=== PATIENT | male | born 1935 | race Caucasian/White ===

== ENCOUNTER 2024-03-13 20:19 | Inpatient (IN) | payer MEDICARE ==
[~2024-03-13] VITALS: Ht 188 cm; Wt 79.4 kg
[2024-03-13] MEDS ORDERED: ONDANSETRON HCL/PF 4 MG/2 ML VIAL ONE (21:05)
[2024-03-13 21:06] LABS: BASOPHILS % (AUTO) 0.5 % (0.0-2.0); EOSINOPHILS # (AUTO) 0.2 K/uL (0.0-0.7); EOSINOPHILS % (AUTO) 2.1 % (0.0-6.0); HEMATOCRIT 37 % (39-51); HEMOGLOBIN 12.9 g/dL (13.5-17.5); LYMPHOCYTES # (AUTO) 0.8 K/uL (0.8-4.8); LYMPHOCYTES % (AUTO) 7.9 % (20.0-44.0); MEAN CORPUSCULAR HEMOGLOBIN 34 PG (26.0-33.0); MEAN CORPUSCULAR HGB CONC 35 g/dl (31.0-36.0); MEAN CORPUSCULAR VOLUME 97 fL (80-96); MONOCYTES # (AUTO) 0.8 K/uL (0.1-1.30); MONOCYTES % (AUTO) 7.3 % (2.0-12.0); NEUTROPHILS # (AUTO) 8.8 K/uL (1.8-8.9); NEUTROPHILS % (AUTO) 82.2 % (43.0-81.0); PLATELET COUNT (AUTO) 252 K/uL (150-450); RED BLOOD CELL COUNT(AUTO) 3.83 MIL/uL (4.5-6.0); RED CELL DISTRIBUTION WIDTH 14.4 % (11.5-15.0); WHITE BLOOD COUNT (AUTO) 10.7 K/uL (4.3-11.0)
[2024-03-13] MEDS ORDERED: MORPHINE SULFATE INJ 4 MG/ML DISP.SYRIN ONE (21:06)
[2024-03-13] MEDS: ONDANSETRON HCL/PF 4 MG/2 ML VIAL IVP ONE (21:10)
[2024-03-13] MEDS: MORPHINE SULFATE INJ 2 MG/ML DISP.SYRIN IV ONE (21:10)
[2024-03-13 21:14] LABS: CALCIUM, SERUM 8.4 mg/dL (8.5-10.1); CREATININE 1.2 mg/dL (0.6-1.3)
[2024-03-13 21:21] LABS: POTASSIUM 2.7 mmol/L (3.5-5.1)
[2024-03-13 21:22] LABS: INR 1.05 (0.91-1.10); PARTIAL THROMBOPLASTIN TIME 26.9 SEC (24.3-34.3); PROTHROMBIN TIME 11.1 SECS (9.2-11.1)
[2024-03-13] MEDS ORDERED: POTASSIUM CHLORIDE 20 MEQ TAB.PRT.SR PO ONE (21:42)
[2024-03-13] MEDS: POTASSIUM CHLORIDE 20 MEQ TAB.PRT.SR PO ONE (21:45)
[2024-03-13] MEDS ORDERED: ACETAMINOPHEN ES 500 MG TABLET ONE (22:30)
[2024-03-13] MEDS ORDERED: MAG HYDROX/AL HYDROX/SIMETH 30 ML UDC PO PRN (22:30)
[2024-03-13] MEDS ORDERED: MORPHINE SULFATE INJ 4 MG/ML DISP.SYRIN IV PRN (22:30)
[2024-03-13] MEDS ORDERED: ONDANSETRON HCL/PF 4 MG/2 ML VIAL IVP PRN (22:30)
[2024-03-13] MEDS: ACETAMINOPHEN ES 500 MG TABLET PO ONE (22:34)
[2024-03-13] MEDS ORDERED: ALLO100T PO (22:36)
[2024-03-13] MEDS ORDERED: LOSA25TA27 PO (22:36)
[2024-03-13] MEDS ORDERED: AMLO2.5T4 PO (22:36)
[2024-03-13] MEDS ORDERED: METO25TA3 PO (22:36)
[2024-03-13] MEDS ORDERED: DULO20CA PO (22:36)
[2024-03-13] MEDS ORDERED: SOLI5TAB2 PO (22:36)
[2024-03-13] MEDS ORDERED: TRAM50TA2 PO (22:36)
[2024-03-13] MEDS ORDERED: GEMTESA PO (22:36)
[2024-03-13] MEDS ORDERED: PRIM50TA27 PO (22:36)
[2024-03-13 22:45] VITALS: BP 136/83; TEMP 98.1; O2SAT 97
[2024-03-14] VITALS: BP 136/83; TEMP 98.1; O2SAT 97
[2024-03-14] MEDS: IV D5/0.45 NACL 1,000 ML IV SCH (00:59)
[2024-03-14 07:32] LABS: BASOPHILS % (AUTO) 0.3 % (0.0-2.0); EOSINOPHILS # (AUTO) 0.1 K/uL (0.0-0.7); EOSINOPHILS % (AUTO) 1.5 % (0.0-6.0); HEMATOCRIT 38 % (39-51); LYMPHOCYTES # (AUTO) 0.7 K/uL (0.8-4.8); LYMPHOCYTES % (AUTO) 7.9 % (20.0-44.0); MEAN CORPUSCULAR HEMOGLOBIN 33 PG (26.0-33.0); MEAN CORPUSCULAR HGB CONC 34 g/dl (31.0-36.0); MEAN CORPUSCULAR VOLUME 97 fL (80-96); MONOCYTES # (AUTO) 1.1 K/uL (0.1-1.30); MONOCYTES % (AUTO) 12.8 % (2.0-12.0); NEUTROPHILS # (AUTO) 6.8 K/uL (1.8-8.9); NEUTROPHILS % (AUTO) 77.5 % (43.0-81.0); PLATELET COUNT (AUTO) 240 K/uL (150-450); RED BLOOD CELL COUNT(AUTO) 3.92 MIL/uL (4.5-6.0); RED CELL DISTRIBUTION WIDTH 14.4 % (11.5-15.0); WHITE BLOOD COUNT (AUTO) 8.8 K/uL (4.3-11.0)
[2024-03-14 07:44] LABS: CHOLESTEROL 136 mg/dL (<200); HDL CHOLESTEROL 43 mg/dL (40-60); LDL 90 mg/dL (0-99); TRIGLYCERIDES 64 mg/dL (30-150)
[2024-03-14 07:49] LABS: CALCIUM, SERUM 8.1 mg/dL (8.5-10.1); INR 1.03 (0.91-1.10); MAGNESIUM 1.5 mg/dL (1.8-2.4); PARTIAL THROMBOPLASTIN TIME 30.1 SEC (24.3-34.3); PHOSPHORUS 2.9 mg/dL (2.5-4.9); POTASSIUM 3.3 mmol/L (3.5-5.1); PROTHROMBIN TIME 10.9 SECS (9.2-11.1)
[2024-03-14 08:00] VITALS: BP 132/79; TEMP 97.7; O2SAT 96
[2024-03-14 08:29] LABS: THYROID STIMULATING HORMONE 1.99 uIU/mL (0.358-3.74)
[2024-03-14] MEDS: PANTOPRAZOLE 40 MG VIAL IV SCH (09:49)
[2024-03-14] MEDS ORDERED: POTASSIUM CHLORIDE 20 MEQ TAB.PRT.SR PO ONE (10:00)
[2024-03-14] MEDS ORDERED: Magnesium 1GM/D5W 100ML PREMIX 100 ML IV SCH (10:00)
[2024-03-14] MEDS: METOPROLOL SUCCINATE 25 MG TAB.SR.24H PO SCH (10:55)
[2024-03-14] MEDS: LOSARTAN POTASSIUM 25 MG TABLET PO SCH (10:55)
[2024-03-14] MEDS: AMLODIPINE BESYLATE 2.5 MG TABLET PO SCH (10:55)
[2024-03-14] MEDS: Magnesium 1GM/D5W 100ML PREMIX 100 ML IV SCH (11:08)
[2024-03-14] MEDS: POTASSIUM CL. PREMIX PERIPHER. 50 ML IV SCH ×2 (13:45→21:01)
[2024-03-14] MEDS ORDERED: MULT-594 PO (14:56)
[2024-03-14] MEDS ORDERED: RELIEF FACTOR PO (14:56)
[2024-03-14] MEDS ORDERED: CRAN300T PO (14:56)
[2024-03-14] MEDS ORDERED: MELA5TAB PO (14:56)
[2024-03-14] MEDS ORDERED: Duloxetine Hcl PO (14:56)
[2024-03-14] MEDS ORDERED: SIMV-46 PO (14:56)
[2024-03-14] MEDS ORDERED: NERVE RENEW PO (14:56)
[2024-03-14] MEDS ORDERED: LOSA50TA39 PO (14:56)
[2024-03-14] MEDS ORDERED: ASPI-1169 PO (14:56)
[2024-03-14] MEDS ORDERED: ROPIVACAINE HCL 0.5% 5 MG/ML 30ML VIAL ONE (14:56)
[2024-03-14] MEDS ORDERED: FENTANYL PF 250MCG/5ML AMPUL ONE (14:57)
[2024-03-14] MEDS ORDERED: ROCURONIUM BROMIDE 50 MG/5 ML ONE (14:57)
[2024-03-14] MEDS ORDERED: BUPIVACAINE 0.5 % PF 150 MG/30 ML VIAL ONE (15:05)
[2024-03-14] MEDS ORDERED: TRANEXAMIC ACID 1,000 MG/10 ML VIAL ONE (15:56)
[2024-03-14] MEDS ORDERED: HEMOSTATIC MATRIX 8 ML 1 EACH PAD MC ONE (16:22)
[2024-03-14] MEDS ORDERED: MORPHINE SULFATE INJ 10 MG/ML DISP.SYRIN IV PRN (17:00)
[2024-03-14] MEDS ORDERED: MEPERIDINE HCL/PF 50 MG/ML DISP.SYRIN IV PRN (17:00)
[2024-03-14 19:05] VITALS: BP 146/81; TEMP 98.2; O2SAT 94
[2024-03-14] MEDS ORDERED: ANESTHESIA TRAY IN PYXIS 1 EA TRAY MC ONE (19:29)
[2024-03-14 20:00] VITALS: BP 127/86; TEMP 97.5; O2SAT 91
[2024-03-14] MEDS: CEFAZOLIN 2 GM in IV D5W 100 ML IV SCH (20:17)
[2024-03-15 07:10] LABS: BASOPHILS % (AUTO) 0.1 % (0.0-2.0); HEMATOCRIT 36 % (39-51); HEMOGLOBIN 12.1 g/dL (13.5-17.5); LYMPHOCYTES # (AUTO) 0.5 K/uL (0.8-4.8); LYMPHOCYTES % (AUTO) 4.9 % (20.0-44.0); MEAN CORPUSCULAR HEMOGLOBIN 34 PG (26.0-33.0); MEAN CORPUSCULAR HGB CONC 34 g/dl (31.0-36.0); MEAN CORPUSCULAR VOLUME 99 fL (80-96); MONOCYTES # (AUTO) 0.9 K/uL (0.1-1.30); MONOCYTES % (AUTO) 8.8 % (2.0-12.0); NEUTROPHILS # (AUTO) 8.8 K/uL (1.8-8.9); NEUTROPHILS % (AUTO) 86.2 % (43.0-81.0); PLATELET COUNT (AUTO) 217 K/uL (150-450); RED BLOOD CELL COUNT(AUTO) 3.61 MIL/uL (4.5-6.0); RED CELL DISTRIBUTION WIDTH 14.4 % (11.5-15.0); WHITE BLOOD COUNT (AUTO) 10.3 K/uL (4.3-11.0)
[2024-03-15 08:00] VITALS: BP 112/90; TEMP 98.2; O2SAT 94
[2024-03-15] MEDS: ALLOPURINOL 100 MG TABLET PO SCH (08:12)
[2024-03-15 08:21] LABS: ALBUMIN 2.5 g/dL (3.4-5.0); BILIRUBIN,TOTAL 0.3 mg/dL (0.2-1.0); CALCIUM, SERUM 7.9 mg/dL (8.5-10.1); CREATININE 1.4 mg/dL (0.6-1.3); MAGNESIUM 1.9 mg/dL (1.8-2.4); POTASSIUM 3.8 mmol/L (3.5-5.1); TOTAL PROTEIN, SERUM 5.4 g/dL (6.4-8.2)
[2024-03-15] MEDS ORDERED: PANTOPRAZOLE 40 MG TABLET.DR PO SCH (09:00)
[2024-03-15] MEDS ORDERED: POLYVINYL ALCOHOL 15 ML BOTTLE EACHEYE PRN (09:30)
[2024-03-15] MEDS: THERAHONEY GEL 1.5 OZ TUBE TP SCH (11:59)
[2024-03-15 16:00] VITALS: BP 113/76; TEMP 98.2; O2SAT 98
[2024-03-15] MEDS: ENOXAPARIN SODIUM 40 MG/0.4 ML DISP.SYRIN SQ SCH (17:34)
[2024-03-15 20:00] VITALS: BP 100/43; TEMP 98.2; O2SAT 92
[2024-03-15] MEDS: IV D5/0.45 NACL 1,000 ML IV PRN (20:28)
[2024-03-16 07:15] LABS: BASOPHILS % (AUTO) 0.4 % (0.0-2.0); EOSINOPHILS # (AUTO) 0.1 K/uL (0.0-0.7); EOSINOPHILS % (AUTO) 0.8 % (0.0-6.0); HEMATOCRIT 30 % (39-51); HEMOGLOBIN 10.5 g/dL (13.5-17.5); LYMPHOCYTES # (AUTO) 0.9 K/uL (0.8-4.8); LYMPHOCYTES % (AUTO) 9.2 % (20.0-44.0); MEAN CORPUSCULAR HEMOGLOBIN 34 PG (26.0-33.0); MEAN CORPUSCULAR HGB CONC 35 g/dl (31.0-36.0); MEAN CORPUSCULAR VOLUME 97 fL (80-96); MONOCYTES # (AUTO) 0.8 K/uL (0.1-1.30); MONOCYTES % (AUTO) 8.7 % (2.0-12.0); NEUTROPHILS # (AUTO) 7.5 K/uL (1.8-8.9); NEUTROPHILS % (AUTO) 80.9 % (43.0-81.0); PLATELET COUNT (AUTO) 203 K/uL (150-450); RED BLOOD CELL COUNT(AUTO) 3.11 MIL/uL (4.5-6.0); RED CELL DISTRIBUTION WIDTH 14.3 % (11.5-15.0); WHITE BLOOD COUNT (AUTO) 9.3 K/uL (4.3-11.0)
[2024-03-16 07:49] LABS: ALBUMIN 2.2 g/dL (3.4-5.0); BILIRUBIN,TOTAL 0.5 mg/dL (0.2-1.0); CALCIUM, SERUM 7.6 mg/dL (8.5-10.1); CREATININE 1.4 mg/dL (0.6-1.3); MAGNESIUM 1.7 mg/dL (1.8-2.4); PHOSPHORUS 1.6 mg/dL (2.5-4.9)
[2024-03-16 08:00] VITALS: BP 122/72; TEMP 98.6; O2SAT 95
[2024-03-16 09:09] LABS: POTASSIUM 2.6 mmol/L (3.5-5.1)
[2024-03-16] MEDS: PANTOPRAZOLE 40 MG TABLET.DR PO SCH (09:33)
[2024-03-16] MEDS ORDERED: POTASSIUM CHLORIDE 20 MEQ TAB.PRT.SR PO ONE (10:30)
[2024-03-16] MEDS: POTASSIUM CHLORIDE 20 MEQ POWDER PACKET PO ONE (11:09)
[2024-03-16 13:59] LABS: THYROID STIMULATING HORMONE 0.43 uIU/mL (0.358-3.74)
[2024-03-16] MEDS: NEUTRA PHOS 1 POWD.PACKET PO ONE (16:18)
[2024-03-16 20:00] VITALS: BP 138/105; TEMP 98.6; O2SAT 95
[2024-03-17 07:00] VITALS: BP 136/74; TEMP 102.9; O2SAT 94
[2024-03-17 07:55] LABS: BASOPHILS % (AUTO) 0.2 % (0.0-2.0); EOSINOPHILS % (AUTO) 0.3 % (0.0-6.0); HEMATOCRIT 36 % (39-51); HEMOGLOBIN 12.4 g/dL (13.5-17.5); LYMPHOCYTES % (AUTO) 7.6 % (20.0-44.0); MEAN CORPUSCULAR HEMOGLOBIN 34 PG (26.0-33.0); MEAN CORPUSCULAR HGB CONC 35 g/dl (31.0-36.0); MEAN CORPUSCULAR VOLUME 97 fL (80-96); MONOCYTES # (AUTO) 0.5 K/uL (0.1-1.30); MONOCYTES % (AUTO) 3.8 % (2.0-12.0); NEUTROPHILS # (AUTO) 11.2 K/uL (1.8-8.9); NEUTROPHILS % (AUTO) 88.1 % (43.0-81.0); PLATELET COUNT (AUTO) 317 K/uL (150-450); RED BLOOD CELL COUNT(AUTO) 3.68 MIL/uL (4.5-6.0); RED CELL DISTRIBUTION WIDTH 14.2 % (11.5-15.0); WHITE BLOOD COUNT (AUTO) 12.7 K/uL (4.3-11.0)
[2024-03-17 08:27] LABS: ALBUMIN 2.7 g/dL (3.4-5.0); BILIRUBIN,TOTAL 1.1 mg/dL (0.2-1.0); CALCIUM, SERUM 8.5 mg/dL (8.5-10.1); CREATININE 1.5 mg/dL (0.6-1.3); MAGNESIUM 1.8 mg/dL (1.8-2.4); POTASSIUM 3.5 mmol/L (3.5-5.1); TOTAL PROTEIN, SERUM 6.3 g/dL (6.4-8.2)
[2024-03-17] MEDS ORDERED: diphenhydrAMINE HCL ELIX 25 MG/10 ML UDC PO PRN (12:00)
[2024-03-17] MEDS ORDERED: HALOPERIDOL 5 MG TABLET PO PRN (12:00)
[2024-03-17 15:57] VITALS: BP 106/63; TEMP 100; O2SAT 94
[2024-03-17] MEDS ORDERED: ACETAMINOPHEN 325 MG TABLET PO PRN (16:00)
[2024-03-17] MEDS: ACETAMINOPHEN 325 MG TABLET MC PRN (16:13)
[2024-03-17 20:00] VITALS: BP 95/59; TEMP 97.5; O2SAT 92
[2024-03-18] VITALS (10 sets, daily range): BP systolic 95–148; BP diastolic 65–106; TEMP 97.3–98.1; O2SAT 89–100
[2024-03-18 01:39] LABS: ABG BASE EXCESS -6.5 mmol/L (-2.0-3.0); ABG OXYGEN SATURATION 96.5 % (94.0-98.0); ABG PH 7.043 (7.350-7.450); ABG PO2 127.2 mmHg (83.0-108.0); ABG TOTAL HEMOGLOBIN 12.6 G/dL (13.5-17.5); COHb 0.6 % (0.5-1.5); MetHb 0.1 % (0.0-1.5); O2Hb 95.8 % (94.0-97.0); SITE, ABG RIGHT RADIAL
[2024-03-18 01:58] LABS: BASOPHILS % (AUTO) 0.1 % (0.0-2.0); HEMATOCRIT 35 % (39-51); HEMOGLOBIN 11.9 g/dL (13.5-17.5); LYMPHOCYTES # (AUTO) 0.4 K/uL (0.8-4.8); LYMPHOCYTES % (AUTO) 2.1 % (20.0-44.0); MEAN CORPUSCULAR HEMOGLOBIN 33 PG (26.0-33.0); MEAN CORPUSCULAR HGB CONC 34 g/dl (31.0-36.0); MEAN CORPUSCULAR VOLUME 98 fL (80-96); MONOCYTES # (AUTO) 0.8 K/uL (0.1-1.30); MONOCYTES % (AUTO) 4.6 % (2.0-12.0); NEUTROPHILS # (AUTO) 16.8 K/uL (1.8-8.9); NEUTROPHILS % (AUTO) 93.2 % (43.0-81.0); PLATELET COUNT (AUTO) 306 K/uL (150-450); RED BLOOD CELL COUNT(AUTO) 3.56 MIL/uL (4.5-6.0); RED CELL DISTRIBUTION WIDTH 14.5 % (11.5-15.0)
[2024-03-18 03:03] LABS: APPEARANCE,URINE TURBID (CLEAR); BILIRUBIN,URINE 2+ (NEGATIVE); BLOOD, URINE 3+ Ery/uL (NEGATIVE); COLOR,URINE RED (YELLOW); KETONES,URINE 1+ mg/dL (NEGATIVE); LEUKOCYTE ESTERASE ,URINE NEGATIVE (NEGATIVE); NITRITE, URINE POSITIVE (NEGATIVE); PH,URINE 6.5 (5.0-8.0); PROTEIN,URINE 3+ mg/dl (NEGATIVE); UGLUCOSE 1+ mg/dL (NEGATIVE)
[2024-03-18 03:04] LABS: ADD URINE CULTURE YES; BACTERIA,URINE Many /HPF (None Seen); RBC,URINE TOO NUMEROUS TO COUN /HPF (0-2); SQUAMOUS EPITHELIAL CELL,UR Rare /HPF (None Seen)
[2024-03-18] MEDS ORDERED: VANCOMYCIN 1 GM /D5W 250 ML PB IV ONE ×2 (03:28→03:33)
[2024-03-18] MEDS ORDERED: CEFEPIME 1 GM VIAL ONE (03:33)
[2024-03-18] MEDS: CEFEPIME 2 GM in IV D5W 100 ML IV SCH ×2 (03:44→10:31)
[2024-03-18] MEDS: VANCOMYCIN 1.5 GM in IV NS 0.9% 250 ML IV ONE (04:21)
[2024-03-18] MEDS: IV NS 0.9% 500 ML BAG IV ONE (04:25)
[2024-03-18 05:46] LABS: ABG BASE EXCESS -3.8 mmol/L (-2.0-3.0); ABG OXYGEN SATURATION 99.4 % (94.0-98.0); ABG PCO2 29.2 mmHg (35.0-48.0); ABG PH 7.438 (7.350-7.450); ABG PO2 381.9 mmHg (83.0-108.0); ABG TOTAL HEMOGLOBIN 11.8 G/dL (13.5-17.5); COHb 0.3 % (0.5-1.5); MetHb 0.3 % (0.0-1.5); O2Hb 98.8 % (94.0-97.0); SITE, ABG RIGHT RADIAL
[2024-03-18 08:14] LABS: CREATININE 1.9 mg/dL (0.6-1.3); POTASSIUM 3.3 mmol/L (3.5-5.1)
[2024-03-18] MEDS: DULOXETINE HCL 30 MG CAPSULE.DR PO SCH (09:00)
[2024-03-18] MEDS ORDERED: POTASSIUM CHLORIDE 20 MEQ TAB.PRT.SR PO SCH (10:00)
[2024-03-18] MEDS ORDERED: MORPHINE SULFATE INJ 4 MG/ML DISP.SYRIN IV PRN (10:30)
[2024-03-18] MEDS ORDERED: POTASSIUM CL. PREMIX PERIPHER. 50 ML IV SCH (10:30)
[2024-03-18] MEDS: HEPARIN SODIUM, PORCINE 5000 UNITS/1 ML VIAL SQ SCH (10:48)
[2024-03-18] MEDS: POTASSIUM CL. PREMIX PERIPHER. 50 ML IV SCH (11:32)
[2024-03-18] MEDS: IPRATROPIUM NEB FS 0.5 MG/2.5 ML AMPUL.NEB NEB SCH (12:04)
[2024-03-18 12:45] LABS: ABG BASE EXCESS -1.5 mmol/L (-2.0-3.0); ABG OXYGEN SATURATION 94.9 % (94.0-98.0); ABG PH 7.461 (7.350-7.450); ABG PO2 72.4 mmHg (83.0-108.0); ABG TOTAL HEMOGLOBIN 11.4 G/dL (13.5-17.5); COHb 0.2 % (0.5-1.5); MetHb 0.3 % (0.0-1.5); O2Hb 94.4 % (94.0-97.0); SITE, ABG RIGHT RADIAL
[2024-03-18 13:09] LABS: *SPE ALBUMIN 2.9 g/dL (2.9-4.4); *SPE ALPHA-1-GLOBULIN 0.5 g/dL (0.0-0.4); *SPE ALPHA-2-GLOBULIN 0.9 g/dL (0.4-1.0); *SPE GLOBULIN, TOTAL 2.9 g/dL (2.2-3.9); *SPE M-SPIKE Not Observed g/dL (Not Observed); *SPE PROTEIN TOTAL 5.8 g/dL (6.0-8.5); *SPEGAMMA GLOBULIN 0.5 g/dL (0.4-1.8)
[2024-03-19] VITALS (14 sets, daily range): BP systolic 91–134; BP diastolic 52–72; TEMP 97.4–101; O2SAT 90–96
[2024-03-19 01:07] LABS: FOLIC ACID 5.7 ng/mL (>3.0)
[2024-03-19] MEDS: VANCOMYCIN HCL 1.25 GM in IV D5W 250 ML IV SCH (04:51)
[2024-03-19 08:12] LABS: BASOPHILS % (AUTO) 0.1 % (0.0-2.0); HEMATOCRIT 30 % (39-51); HEMOGLOBIN 10.1 g/dL (13.5-17.5); LYMPHOCYTES # (AUTO) 0.5 K/uL (0.8-4.8); MEAN CORPUSCULAR HEMOGLOBIN 32 PG (26.0-33.0); MEAN CORPUSCULAR HGB CONC 34 g/dl (31.0-36.0); MEAN CORPUSCULAR VOLUME 97 fL (80-96); NEUTROPHILS # (AUTO) 23.7 K/uL (1.8-8.9); NEUTROPHILS % (AUTO) 93.9 % (43.0-81.0); PLATELET COUNT (AUTO) 231 K/uL (150-450); RED BLOOD CELL COUNT(AUTO) 3.12 MIL/uL (4.5-6.0); RED CELL DISTRIBUTION WIDTH 14.1 % (11.5-15.0); WHITE BLOOD COUNT (AUTO) 25.3 K/uL (4.3-11.0)
[2024-03-19 08:35] LABS: CALCIUM, SERUM 8.1 mg/dL (8.5-10.1); CREATININE 2.4 mg/dL (0.6-1.3); POTASSIUM 3.8 mmol/L (3.5-5.1)
[2024-03-19 11:08] LABS: PTH, INTACT 29 pg/mL (15-65)
[2024-03-19 13:02] LABS: APPEARANCE,URINE TURBID (CLEAR); BILIRUBIN,URINE 1+ (NEGATIVE); BLOOD, URINE 3+ Ery/uL (NEGATIVE); COLOR,URINE BROWN (YELLOW); KETONES,URINE TRACE mg/dL (NEGATIVE); LEUKOCYTE ESTERASE ,URINE TRACE (NEGATIVE); NITRITE, URINE POSITIVE (NEGATIVE); PROTEIN,URINE 2+ mg/dl (NEGATIVE); UGLUCOSE NEGATIVE (NEGATIVE)
[2024-03-19 13:24] LABS: ADD URINE CULTURE YES; BACTERIA,URINE Few /HPF (None Seen); RBC,URINE TOO NUMEROUS TO COUN /HPF (0-2); SQUAMOUS EPITHELIAL CELL,UR 0-2 /HPF (None Seen)
[2024-03-19 13:25] LABS: URINE AMORPHOUS URATE Few /HPF (None Seen)
[2024-03-19] MEDS: CEFEPIME 1 GM in IV D5W 50 ML IV SCH (21:19)
[2024-03-20] VITALS (11 sets, daily range): BP systolic 116–148; BP diastolic 59–79; TEMP 97.6–98.2; O2SAT 92–99
[2024-03-20] MEDS: VANCOMYCIN 750 MG in IV D5W 250 ML IV SCH (05:27)
[2024-03-20 07:56] LABS: BASOPHILS # (AUTO) 0.1 K/uL (0.0-0.2); BASOPHILS % (AUTO) 0.3 % (0.0-2.0); EOSINOPHILS % (AUTO) 0.1 % (0.0-6.0); HEMATOCRIT 32 % (39-51); HEMOGLOBIN 10.1 g/dL (13.5-17.5); LYMPHOCYTES # (AUTO) 0.6 K/uL (0.8-4.8); LYMPHOCYTES % (AUTO) 2.2 % (20.0-44.0); MEAN CORPUSCULAR HEMOGLOBIN 33 PG (26.0-33.0); MEAN CORPUSCULAR HGB CONC 32 g/dl (31.0-36.0); MEAN CORPUSCULAR VOLUME 102 fL (80-96); MONOCYTES % (AUTO) 3.8 % (2.0-12.0); NEUTROPHILS # (AUTO) 25.6 K/uL (1.8-8.9); NEUTROPHILS % (AUTO) 93.6 % (43.0-81.0); PLATELET COUNT (AUTO) 211 K/uL (150-450); RED CELL DISTRIBUTION WIDTH 15.3 % (11.5-15.0); WHITE BLOOD COUNT (AUTO) 27.3 K/uL (4.3-11.0)
[2024-03-20 08:03] LABS: CALCIUM, SERUM 8.1 mg/dL (8.5-10.1); CREATININE 2.2 mg/dL (0.6-1.3); POTASSIUM 3.6 mmol/L (3.5-5.1)
[2024-03-20] MEDS ORDERED: MAG HYDROX/AL HYDROX/SIMETH 30 ML UDC NG PRN (08:36)
[2024-03-20] MEDS ORDERED: HALOPERIDOL 5 MG TABLET NG PRN (08:36)
[2024-03-20] MEDS ORDERED: diphenhydrAMINE HCL ELIX 25 MG/10 ML UDC NG PRN (08:37)
[2024-03-20] MEDS ORDERED: ACETAMINOPHEN 650 MG/20.3 ML UDC NG PRN (09:00)
[2024-03-20] MEDS: PANTOPRAZOLE 40 MG/PACK PACK NG SCH (09:54)
[2024-03-20] MEDS: DULOXETINE HCL 30 MG CAPSULE.DR NG SCH (09:54)
[2024-03-20] MEDS: ALLOPURINOL 100 MG TABLET NG SCH (09:55)
[2024-03-20] MEDS: PROSOURCE / PROSTAT (PYXIS) 30 ML UDC NG SCH (09:58)
[2024-03-20] MEDS: JEVITY 1.2 CAL 1,000 ML BOTTLE NG SCH (12:42)
[2024-03-21 01:43] VITALS: O2SAT 93
[2024-03-21 01:58] VITALS: O2SAT 96; O2SAT 97
[2024-03-21 04:00] VITALS: BP 139/88; TEMP 98.2; O2SAT 99
[2024-03-21 05:01] LABS: CALCIUM, SERUM 8.3 mg/dL (8.5-10.1); CARBON DIOXIDE 23 mmol/L (21-32); CHLORIDE 110 mmol/L (98-107); CREATININE 2.2 mg/dL (0.6-1.3); GLUCOSE 152 mg/dL (74-106); SODIUM SERUM 142 mmol/L (136-145); UREA NITROGEN, BLOOD 57 mg/dL (7-18)
== END 2024-03-21 06:00 | DRG 521 ==
LOC: ER 20:24 → MED 22:27 → TELE-TD 03-18 02:21 → TELE1 03-18 09:47 → MEDSG1 03-18 11:00
PROVIDERS: ATTEND Nurse Practitioner Acute Care
PROC: 0SRS0J9 Replacement of Left Hip Joint, Femoral Surface with Synthetic Substitute, Cemented, Open Approach (ICD-10-PCS; principal; 2024-03-14)
PROC: 5A09357 Assistance with Respiratory Ventilation, Less than 24 Consecutive Hours, Continuous Positive Airway Pressure (ICD-10-PCS; 2024-03-18)
DX: S72.002A Fracture of unspecified part of neck of left femur, initial encounter for closed fracture (principal); J69.0 Pneumonitis due to inhalation of food and vomit; J96.01 Acute respiratory failure with hypoxia; N17.0 Acute kidney failure with tubular necrosis; J96.02 Acute respiratory failure with hypercapnia; I13.0 Hypertensive heart and chronic kidney disease with heart failure and stage 1 through stage 4 chronic kidney disease, or unspecified chronic kidney disease; I50.22 Chronic systolic (congestive) heart failure; F02.83 Dementia in other diseases classified elsewhere, unspecified severity, with mood disturbance; I42.9 Cardiomyopathy, unspecified; F05 Delirium due to known physiological condition; E87.29 Other acidosis; N39.0 Urinary tract infection, site not specified; W01.0XXA Fall on same level from slipping, tripping and stumbling without subsequent striking against object, initial encounter; I11.0 Hypertensive heart disease with heart failure; Z66 Do not resuscitate; Y92.000 Kitchen of unspecified non-institutional (private) residence as the place of occurrence of the external cause; G62.9 Polyneuropathy, unspecified; M10.9 Gout, unspecified; M81.0 Age-related osteoporosis without current pathological fracture; M89.8X9 Other specified disorders of bone, unspecified site; N18.9 Chronic kidney disease, unspecified; R29.6 Repeated falls; L89.156 Pressure-induced deep tissue damage of sacral region; Y95 Nosocomial condition; Z51.5 Encounter for palliative care; Z91.81 History of falling; Z96.653 Presence of artificial knee joint, bilateral; Z79.899 Other long term (current) drug therapy; E78.5 Hyperlipidemia, unspecified; E87.6 Hypokalemia; R26.9 Unspecified abnormalities of gait and mobility; G30.9 Alzheimer's disease, unspecified; F29 Unspecified psychosis not due to a substance or known physiological condition; F39 Unspecified mood [affective] disorder; S06.0X0A Concussion without loss of consciousness, initial encounter; R62.7 Adult failure to thrive; R13.10 Dysphagia, unspecified; D50.9 Iron deficiency anemia, unspecified; R31.9 Hematuria, unspecified; Z79.82 Long term (current) use of aspirin
CPT/HCPCS: 36415; 70450-TC; 71045-TC; 72125-TC; 72170-TC; 73502; 73552; 76770-TC; 80048-TC; 80053-TC; 80061-TC; 80202-TC; 81001; 82550-TC; 82553; 82607-TC; 82962-TC; 83605-TC; 83735-TC; 83921; 83970; 84100-TC; 84155; 84165; 84425; 84443-TC; 85025-TC; 85610-TC; 85730-TC; 87040-TC; 87081-TC; 87086-TC; 88305-TC; 88311-TC; 92526; 92611-TC; 93307-TC; 94760-TC; 94762-TC; 94799-TC; 97110-TC; 97112-TC; 97116-TC; 97530-TC; 97535-TC; A4217; A4223; A6209; C1713; C1776; G0378; J0330; J0690; J0692; J1100; J1644; J1650; J2270; J2405; J2470; J2704; J2795; J3010; J3370; J3371; J3475; J3480; J3490; J7030; J7050; J7060